=== PATIENT | female | born 1965 | race Two or more races ===

== ENCOUNTER 2018-11-06 12:56 | Emergency (ER) | payer BC ==
[~2018-11-06] VITALS: Ht 167.6 cm; Wt 70.8 kg
[2018-11-06 13:08] VITALS: Ht 167.6 cm; Wt 70.8 kg
[2018-11-06 18:49] VITALS: BP 118/70
== END 2018-11-06 18:49 | disposition home or self-care (01) ==
LOC: ED 12:56
DX: J45.901 Unspecified asthma with (acute) exacerbation (principal); R03.0 Elevated blood-pressure reading, without diagnosis of hypertension
CPT/HCPCS: J7620

== ENCOUNTER 2019-07-06 17:05 | Emergency (ER) | payer OTHER ==
[~2019-07-06] VITALS: Ht 167.6 cm; Wt 69.9 kg
[2019-07-06 17:14] VITALS: Ht 167.6 cm; Wt 69.9 kg
[2019-07-06 17:59] LABS: BASOPHIL % 0.2 % (0-2); PLATELET COUNT 267 x10^3mcL (130-400); RED CELL DISTRIBUTION WIDTH 13.9 % (11.5-14.5)
[2019-07-06 18:04] LABS: CALCIUM 8.6 mg/dL (8.5-10.1); CHLORIDE SERUM 103 mmol/L (98-107); CREATININE SERUM 0.7 mg/dL (0.6-1.0); GFR1 > 60 mL/min; GLUCOSE SERUM 86 mg/dL (74-106); POTASSIUM SERUM 3.8 mmol/L (3.5-5.1); SODIUM SERUM 141 mmol/L (136-145)
[2019-07-06 18:07] LABS: ALBUMIN 3.8 g/dL (3.4-5.0); ALKALINE PHOSPHATASE 101 U/L (46-116); ALT/SGPT 26 U/L (14-59); AST/SGOT 20 U/L (15-37); BILIRUBIN TOTAL 0.6 mg/dL (0.20-1.00); LIPASE 99 IU/L (73-393); TOTAL PROTEIN, SERUM 7.7 g/dL (6.4-8.2)
[2019-07-06 18:47] VITALS: BP 133/85
== END 2019-07-06 18:47 | disposition home or self-care (01) ==
LOC: ED 17:05
PROVIDERS: Emergency Medicine
DX: K29.70 Gastritis, unspecified, without bleeding (principal); J45.909 Unspecified asthma, uncomplicated
CPT/HCPCS: 36415